=== PATIENT | female | born 1950 | race Caucasian/White ===

== ENCOUNTER 2023-11-02 12:55 | Inpatient (IN) | payer MEDICARE, OTHER, SELFPAY ==
[2023-11-02] VITALS (54 sets, daily range): BP systolic 132–193; BP diastolic 71–180; PULSE 58–71; RESP 18; TEMP 36.9; O2SAT 92–99; BMI 35.1; BMI 34.9
--- NOTE | 2023-11-02 13:12 | ED_ITS ---
HPI - General Adult General Date Seen: 11/02/23 Chief complaint: Weakness Stated complaint: shortness of breath Time Seen by Provider: 11/02/23 13:12 History of Present Illness HPI narrative: Pleasant 73-year-old female with a past medical history of hypertension, hyperlipidemia, obesity, but no history of coronary artery disease or lung disease. She is referred to the ER today from her outpatient clinic at a line in [place] for evaluation of dyspnea on exertion and abnormal EKG. She recalls that she did have some symptoms 3 or 4 years ago and had a stress test that was abnormal. She was referred to [facility] for cardiology evaluation apparently had a CT angiogram that was normal and no further workup was undertaken. She has not had any further trouble with her heart or lung since then. 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 He normally walks with a walker and wheelchair. He relies on dialysis. She and her were in [place] over the winter. For the past week or so she has been having symptoms of dyspnea with exertion and exercise. She noted that when she was trying to pack up the car to travel home to [place] for the summer she just got very winded, weak, and not of breath with any activity. No chest pain. This would happen with any activity but then would get better with rest. For instance she was winded when she was loading the car to travel home but not winded while she was driving. She was winded when she was moving her luggage in and out of the hotel room but not winded on the road. She is not having any chest pain. No back pain. No jaw pain or arm pain. She does note that she had some unexplained swelling of her left lower extremity about 3 weeks ago that is getting better. No history of DVT or PE. She went to her primary care clinic and [facility] today and was referred here to the ER. EKGs from [facility] clinic today were obtained at 11:34 a.m. Sinus rhythm with first-degree AV block. Rate: 63 OH: 210 QRS axis: Normal axis. No pathologic Q-waves. Voltage criteria for LVH ST segment/T wave: Nonspecific T-wave flattening. ST depression in lead 1, aVL which are probably discordant from her LVH. QTc: 450 1:26 p.m. Sinus bradycardia Rate: 45 OH: 1st degree AV block. OH to 26 QRS axis: Normal axis. Voltage criteria for LVH. ST segment/T wave: Nonspecific T-wave flattening. No ST segment elevation or depression QTc: 404 Related Data Home Medications Medication Instructions Recorded Confirmed Prevagen 11/02/23 coenzyme Q10 PO 11/02/23 [id number]-Hnnydcaks serr .ROUTE 11/02/23 hydrochlorothiazide 12.5 mg tablet 12.5 mg PO DAILY 11/02/23 11/02/23 krill oil PO 11/02/23 lisinopril 10 mg tablet 10 mg PO DAILY 11/02/23 11/02/23 vit A-vit M-zmktpw-vmat-copper .ROUTE 11/02/23 vit C-E-zinc wu-upxk-esd-zeax PO 11/02/23 vitamin B complex PO 11/02/23 zinc acetate PO 11/02/23 Allergies Allergy/AdvReac Type Severity Reaction Status Date / Time erythromycin base AdvReac Intermediate Anxiety Verified 11/02/23 13:18 gabapentin AdvReac Mild Drowsy Verified 11/02/23 13:18 PFSH PFSH Social History Smoking Status: Never smoker Do you use any of these nicotine containing products: None Second hand tobacco smoke exposure: No How often do you have a drink containing alcohol: never AUDIT-C Alcohol total score: 0 Non-prescribed substance use: denies use Exam Narrative: Exam Narrative: Constitutional: Appears well-developed and well-nourished. Alert. Conversant. Non toxic. HENT: Head: Atraumatic. Nose: Nose normal. Mouth/Throat: Oral mucosa is clear and moist. no trismus. Pharynx normal. Tonsils symmetric. No tonsillar enlargement, erythema, or exudate. Eyes: Conjunctivae normal. EOM normal. Pupils equal, round, and reactive to light. No scleral icterus. Neck: Normal range of motion. Neck supple. No tracheal deviation present. No JVD Cardiovascular: Normal rate, regular rhythm. No gallop. No friction rub. No murmur heard. Symmetric radial artery pulses Pulmonary/Chest: Effort normal. No stridor. No respiratory distress. No wheezes. No rales. No rhonchi . No tenderness. Abdominal: Soft. Bowel sounds normal. No distension. No mass. No tenderness. No rebound. No guarding. Musculoskeletal: RUE: Normal range of motion. No tenderness. No deformity LUE: Normal range of motion. No tenderness. No deformity RLE: Normal range of motion. No edema. No tenderness. No deformity LLE: Normal range of motion. 1+ edema. No tenderness. No deformity Neurological: Alert and oriented to person, place, and time. Normal strength. CN II-VII intact. No sensory deficit. GCS eye subscore is 4. GCS verbal subscore is 5. GCS motor subscore is 6. Normal coordination Skin: Skin is warm and dry. No rash noted. No pallor. Normal capillary refill. Psychiatric: Normal mood. Normal affect. Const: Vital Signs, click to edit/add: Vital Signs - 24 hr 11/02/23 13:06 11/02/23 13:43 11/02/23 13:45 Temperature 98.4 F Pulse Rate 61 62 Pulse Rate [Pulse Oximeter] 62 Respiratory Rate 18 Blood Pressure Blood Pressure [Ri ght Upper Arm] 132/80 Pulse Oximetry 99 98 [facility] 11/02/23 13:49 11/02/23 15:45 11/02/23 16:00 Temperature Pulse Rate 58 L 65 65 Pulse Rate [Pulse Oximeter] Respiratory Rate Blood Pressure 140/71 H Blood Pressure [Ri ght Upper Arm] Pulse Oximetry 97 93 94 Oxygen Delivery Mo thod 11/02/23 16:15 11/02/23 16:30 11/02/23 16:45 Temperature Pulse Rate 63 65 65 Pulse Rate [Pulse Oximeter] Respiratory Rate Blood Pressure Blood Pressure [Ri ght Upper Arm] Pulse Oximetry 94 93 93 Oxygen Delivery Mo thod 11/02/23 17:21 11/02/23 17:24 11/02/23 17:30 Temperature Pulse Rate 60 65 61 Pulse Rate [Pulse Oximeter] Respiratory Rate Blood Pressure 190/98 H Blood Pressure [Ri ght Upper Arm] Pulse Oximetry 97 92 92 Oxygen Delivery Mo thod 11/02/23 17:45 11/02/23 18:00 11/02/23 18:15 Temperature Pulse Rate 65 69 66 Pulse Rate [Pulse Oximeter] Respiratory Rate Blood Pressure Blood Pressure [Ri ght Upper Arm] Pulse Oximetry 96 92 96 [facility] 11/02/23 18:17 Temperature Pulse Rate 63 Pulse Rate [Pulse Oximeter] Respiratory Rate Blood Pressure 180/90 H Blood Pressure [Ri ght Upper Arm] Pulse Oximetry 94 Oxygen Delivery Me thod Course Course ED Course: Patient had difficult IV access. Unable to get an IV through standard means. Patient had placement of an ultrasound guided peripheral IV by Anesthesia. This initially seemed to be functional. However it infiltrated during CT scan She had placement of a 2nd ultrasound guided IV which again infiltrated. Discussed with radiology. With they are not able to perform a CT pulmonary angiogram through a triple-lumen central line which I could place here in the ER. Therefore we have paged the PICC statin nurse and she will place a PICC line. Vital Signs Vital signs: Initial Vital Signs Temperature 98.4 F 11/02/23 13:06 Temperature Source Temporal Artery Scan 11/02/23 13:06 Pulse Rate 62 11/02/23 13:06 Respiratory Rate 18 11/02/23 13:06 Blood Pressure 132/80 11/02/23 13:06 Blood Pressure Mean 97 11/02/23 13:06 Blood Pressure Position Sitting 11/02/23 13:06 Pulse Oximetry 99 11/02/23 13:06 Oxygen Delivery Method Room Air 11/02/23 13:06 Vital Signs Temperature 98.4 F 11/02/23 13:06 Pulse Rate 62 11/02/23 13:06 Respiratory Rate 18 11/02/23 13:06 Blood Pressure 132/80 11/02/23 13:06 Pulse Oximetry 99 11/02/23 13:06 Oxygen Delivery Method Room Air 11/02/23 13:06 Temperature 98.4 F 11/02/23 13:06 Pulse Rate 63 11/02/23 18:17 Respiratory Rate 18 11/02/23 13:06 Blood Pressure 180/90 H 11/02/23 18:17 Pulse Oximetry 94 11/02/23 18:17 Oxygen Delivery Method Room Air 11/02/23 13:06 Medications Administered Medications: Discontinued Medications Generic Name Dose Route Start Last Admin Trade Name Freq PRN Reason Stop Dose Admin Aspirin 162 mg 11/02/23 13:44 11/02/23 14:00 Aspirin 81 Mg Tab.Chew PO 11/02/23 13:45 162 mg ONCE ONE Administration Medical Decision Making MDM Narrative Medical decision making narrative: This patient presents to the ER today for evaluation of dyspnea on exertion and generalized weakness on exertion ongoing for the past week or so. Differential was broad. No evidence of palpitations, syncope or other cardiac dysrhythmia. She is not having chest pain, but with her dyspnea on exertion and clear exertional component to her symptoms We considered possible ACS,. EKG shows sinus bradycardia nonspecific changes but no ST segment elevation or depression. She is not having any chest pain today. However troponin is positive at 0.11. Repeat troponin is 0.09. History is concerning for possible unstable angina. Aspirin administered. With recent left lower extremity swelling, now improving, also consider possible PE. I feel the patient would be high risk for PE and therefore D-dimer testing would not be reliable enough to definitively rule it out. I have ordered CT PA. Kidney function is normal. Unfortunately patient has difficult IV access. She has infiltrated 2 peripheral IVs before she can succeed in CT scan. At this point we are waiting on a placement of a PICC line. Discussed with my oncoming partner, Dr. Pardo, who will follow-up on the results of the CT scan. If she does have a PE, assuming she continues to have stable vital signs (blood pres sure normal so far) she would be appropriate for admission here in [place]. However if CT PA is negative. I think she should transfer to a Cardiology capable hospital for cardiac evaluation. EKG shows no evidence for pericarditis. Clinical presentation not suggestive of myocarditis. No wheezing or bronchospasm to suggest COPD/asthma. Initial CBC showed marked leukopenia and thrombocytopenia. Suspect lab error. Repeat CBC shows normal white count, platelet count, hemoglobin. Kidney function normal. Had a long discussion with the patient. My recommendation is that she be hospitalized if she has a PE or if she has an ACS. Would recommend transfer to a Cardiology capable hospital if ACS is proven. She is obligated to be care provider for her . She has is only care provider. They have no other close family or friends in the state who could help him tonight. While she is here in the ER, there neighbor, who is a guard at the detention, has been staying with him. However her neighbor cannot stay with her overnight tonight or tomorrow. If she needs hospitalization he would probably have to be transported by EMS to a medical facility where he could be admitted for observation and respite care (even though he is not actively ill). Clinical impression 1. Dyspnea on exertion-concerning for ACS versus PE 2. Abnormal troponin Awaiting CT pulmonary angiogram Lab Data Labs: Lab Results 11/02/23 11/02/23 11/02/23 Range/Units 14:20 16:05 16:36 WBC 1.29 L* 9.49 (4.50-11.00) K/uL RBC 3.56 L 4.15 (4.00-5.20) m/uL Hgb 11.9 L 13.5 (12.0-16.0) gm/dL Hct 36.4 40.0 (33.0-51.0) % MCV 102 H 96 (80-100) fL MCH 33 33 (26-34) pg MCHC 33 34 (32-36) gm/dL RDW Coeff of John 13.1 13.1 (11.5-15.5) % Plt Count 23 L* 163 (140-440) K/uL Neut % (Auto) 61.9 68.7 (42.0-72.0) % Lymph % (Auto) 29.5 18.4 L (20-44) % Bartholomew % (Auto) 7.0 9.6 (0.0-11.0) % Eos % (Auto) 0.8 2.3 (0.0-7.0) % Baso % (Auto) 0.8 0.8 (0.0-3.0) % Neut # (Auto) 0.80 L 6.51 (1.7-7.0) K/uL Lymph # (Auto) 0.40 L 1.70 (0.90-2.90) K/uL Bartholomew # (Auto) 0.10 0.90 (0.00-0.90) K/UL Eos # (Auto) 0.00 0.22 (0.00-0.50) K/uL Baso # (Auto) 0.00 0.08 (0.00-0.30) K/uL Abs Immat Gran (auto) 0.00 0.02 (0.00-0.30) K/uL Imm/Tot Granulo (auto) 0.0 0.2 % Diff Slide Review Acceptable Review Acceptable Review (Acceptable) INR 0.95 (0.91-1.10) APTT 25 (23-33) Seconds Sodium 136 (135-149) mmol/L Potassium 4.8 (3.6-5.1) mmol/L Chloride 106 (96-114) mmol/L Carbon Dioxide 21 (20-32) mmol/L Anion Gap 9 (7-15) mEq/L BUN 25 (7-30) mg/dL Creatinine 0.9 (0.5-1.5) mg/dL Estimated Creat Clear 42.68 Estimated GFR 68 ml/min Glucose 98 (60-115) mg/dL Calcium 8.7 (8.4-10.6) mg/dL Troponin I 0.11 H* 0.09 H* (0.01-0.04) ng/mL NT-Pro-B Natriuret Pep 1440 pg/mL ECG Data Attestation: I personally reviewed and interpreted this ECG as follows: Interpretation: Sinus bradycardia with first-degree AV block Rate: 57 OH: 232 QRS axis: Normal axis. Voltage criteria for LVH. ST segment/T wave: No ST segment elevation or depression QTc: 434 Discharge Plan Discharge Clinical Impression: Acute coronary syndrome with high troponin Prescriptions: No Action lisinopril 10 mg tablet 10 mg PO DAILY hydrochlorothiazide 12.5 mg tablet 12.5 mg PO DAILY vitamin B complex [Vitamin B-50 Complex] PO krill oil PO coenzyme Q10 [Co Q-10] PO vit C-E-zinc am-hwlh-chm-zeax [ICaps AREDS2] PO vit A-vit O-bcqoue-krrn-copper [Iozy-Rnnp-Vvrv(vit A,C-biotin)] .ROUTE citaqtzaisp-Y1-Ghtgrxamx serr [Osteo Bi-Flex (5-Loxin)] .ROUTE Prevagen Rx Instructions: 1 capsule daily. Vitamin D - 50 mg Apoaequorin - 20 mg zinc acetate PO Follow Up/Referrals: Maura Fuller DO [Primary Care Provider] -
--- NOTE | 2023-11-02 13:44 | CT_ITS ---
Patient: DALLAS LUNSFORD Facility:?[facility] Patient ID:?[id number] Site Patient ID:?[id number] Site :?[id number] Study:?CT-Chest PE PROTOCOL W/ 95CC ISOVUE 370-11/02/2023 8:54:31 PM Ordering Physician:RAJENDRA Final Report: INDICATION: Dyspnea on exertion, left lower extremity swelling. COMPARISON: None. TECHNIQUE: CT angiogram of the chest, pulmonary embolus protocol. Multiplanar and MIP reformats are included. Contrast: 95 mL Isovue 370 FINDINGS: PE: Well timed bolus. Multiple bilateral pulmonary emboli. The most proximal embolus is a large pulmonary emboli at the bifurcation of the left pulmonary artery. Pulmonary emboli seen at the segmental and subsegmental levels bilaterally. The main pulmonary artery has a upper limits of normal caliber. Normal size right heart chambers. No reflux below the diaphragm. Lungs: Expiratory appearance of the lungs with low volumes. No consolidation. No large infarct. Small pulmonary nodules would likely be obscured. Pleura: No pleural effusion. No pneumothorax. Lymph nodes: No adenopathy. Mediastinum: Normal cardiac chamber size. Scattered atherosclerotic plaques. No pericardial effusion. Contrast mixing with non-opacified blood in the SVC and innominate veins. Left arm PICC distal tip superior cavoatrial junction. Bones: No fracture. No worrisome focal bone lesion. Chest wall: Normal. Upper abdomen: Contrast is already excreted into the renal collecting system from an earlier contrast administration. IMPRESSION: Multiple bilateral pulmonary emboli from the lobar through subsegmental levels. No CT findings of significant right heart strain. No pulmonary infarct seen. Discussed with the patient`s physician Dr. Pardo at 9:06 p.m. on 11/02/2023. Please note that all CT scans at this facility use dose modulation, iterative reconstruction, and/or weight-based dosing when appropriate to reduce radiation dose to as low as reasonably achievable. Dictated by Rosa Ram MD @ 11/02/2023 9:07:37 PM Signed by:?Rosa Ram MD @11/02/2023 9:07:37 PM (Electronic Signature)
[2023-11-02] MEDS: ASPIRIN 81 MG TAB.CHEW 162 MG PO (14:00)
[2023-11-02 14:30] LABS: Basophils Percent Auto 0.8 % (0.0-3.0); Eosinophils Percent Auto 0.8 % (0.0-7.0); Hematocrit 36.4 % (33.0-51.0); Hemoglobin* 11.9 gm/dL (12.0-16.0); Lymphocytes Percent Auto 29.5 % (20-44); Mean Corpuscular HGB Conc 33 gm/dL (32-36); Mean Corpuscular Hemoglobin 33 pg (26-34); Mean Corpuscular Volume 102 fL (80-100); Neutrophils Percent Auto 61.9 % (42.0-72.0); RDW Coefficient of Variation % 13.1 % (11.5-15.5); Red Blood Count 3.56 m/uL (4.00-5.20)
[2023-11-02 14:44] LABS: Chloride* 106 mmol/L (96-114); Potassium* 4.8 mmol/L (3.6-5.1); Sodium* 136 mmol/L (135-149)
[2023-11-02 14:46] LABS: Creatinine* 0.9 mg/dL (0.5-1.5); Est. Creatinine Clearance* 42.68; Estimated Glomerular Filt Rate 68 ml/min
[2023-11-02 14:47] LABS: Anion Gap 9 mEq/L (7-15); Blood Urea Nitrogen* 25 mg/dL (7-30); Calcium* 8.7 mg/dL (8.4-10.6); Carbon Dioxide* 21 mmol/L (20-32); Glucose* 98 mg/dL (60-115)
[2023-11-02 15:01] LABS: NT Pro B Type NatriureticPept* 1440 pg/mL; Troponin I* 0.11 ng/mL (0.01-0.04)
[2023-11-02 15:15] LABS: Platelet Count* 23 K/uL (140-440); White Blood Count* 1.29 K/uL (4.50-11.00)
[2023-11-02 15:16] LABS: Slide Review Reflex Yes
[2023-11-02 16:11] LABS: Basophils Absolute Auto 0.08 K/uL (0.00-0.30); Basophils Percent Auto 0.8 % (0.0-3.0); Eosinophils Absolute Auto 0.22 K/uL (0.00-0.50); Eosinophils Percent Auto 2.3 % (0.0-7.0); Hemoglobin* 13.5 gm/dL (12.0-16.0); Immature Granulocytes Abs Auto 0.02 K/uL (0.00-0.30); Immature Granulocytes Pct Auto 0.2 %; Lymphocytes Percent Auto 18.4 % (20-44); Mean Corpuscular HGB Conc 34 gm/dL (32-36); Mean Corpuscular Hemoglobin 33 pg (26-34); Mean Corpuscular Volume 96 fL (80-100); Monocytes Percent Auto 9.6 % (0.0-11.0); Neutrophils Absolute Auto 6.51 K/uL (1.7-7.0); Neutrophils Percent Auto 68.7 % (42.0-72.0); RDW Coefficient of Variation % 13.1 % (11.5-15.5); Red Blood Count 4.15 m/uL (4.00-5.20); White Blood Count* 9.49 K/uL (4.50-11.00)
[2023-11-02 16:33] LABS: Slide Review Reflex Yes
[2023-11-02 16:34] LABS: Slide Review Acceptable Review (Acceptable)
[2023-11-02 16:48] LABS: Platelet Count* 163 K/uL (140-440)
[2023-11-02 16:49] LABS: Slide Review Acceptable Review (Acceptable)
[2023-11-02 17:04] LABS: Partial Thromboplastin Time* 25 Seconds (23-33)
[2023-11-02 17:13] LABS: INR 0.95 (0.91-1.10); Prothrombin Time 13.2 Seconds
[2023-11-02 17:41] LABS: Troponin I* 0.09 ng/mL (0.01-0.04)
--- NOTE | 2023-11-02 18:54 | XR_ITS ---
Patient: DALLAS LUNSFORD Facility:?[facility] Patient ID:?[id number] Site Patient ID:?[id number] Site :?[id number] Study:?XRay-Chest 1V PORTABLE-11/02/2023 8:07:41 PM Ordering Physician:RAJENDRA Final Report: Indication: PICC line placement. Technique: Chest, 1 portable view. Comparison: 03/06/2021. Findings: Left PICC terminates in the right atrium. No pneumothorax, pleural effusion or focal airspace consolidation. Stable cardiac and mediastinal contours. Upper abdomen and osseous structures as imaged show no acute abnormality. Impression: Left PICC terminates in the right atrium. Dictated by Davi Del Rosario MD @ 11/02/2023 8:16:57 PM Signed by:?Davi Del Rosario MD @11/02/2023 8:16:57 PM (Electronic Signature)
[2023-11-02] MEDS: ENOXAPARIN 80 MG/0.8 ML INJ 90 MG SUBCUT (21:46)
--- NOTE | 2023-11-02 22:09 | ED.NURSE ---
PICC placed by PICC[facility]. PICCstat sheet documented by RN to be scanned in.
--- NOTE | 2023-11-02 22:09 | PC.NURSE ---
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 Pt will be admitted for PEs. Administration called for decision making about is vulnerable adult. He states we need to do the right thing. Dr Garvin is aware accepting of this plan. Pt is a dialysis pt and dementia. Needs other ADLS. Neighbor Silverio called at [phone]. He stated he would bring the pt in through ED entrance and go directly to [facility]. understands that leonel will be a patient and not the caregiver to her while in the hospital.
--- NOTE | 2023-11-02 22:35 | ED.NURSE ---
Pt report given to denise MEYERS. Pt to room 259
--- NOTE | 2023-11-02 23:43 | P.IMHP_ITS ---
Hospitalist- H&P: HPI History of Present Illness Time Seen by Provider: 23:44 Date Seen: 11/03/23 Chief complaint: shortness of breath Narrative: Sybil Uribe is a 73 year old female with a history of hypertension and hyperlipidemia who was having lightheadedness, shortness of breath, and upper chest pain for which she went to clinic today. She and her had just returned yesterday from a 1500 mile car trip. She saw Elizabeth Malin in the [facility] today for weakness, RODRIGUEZ and was found to have an abnormal EKG. She was sent to the ER for concern of possible ACS. Troponin was elevated at 0.11, next one was 0.9. There was an issue with IV access, so a PICC was placed. A CT scan showed bilateral PEs. She has no h/o clots. Her father had a PE after an accident that resulted in broken bones, including ribs. 4-5 weeks ago had swelling and pain in her left lower leg that would improve with elevation. It mostly went away, but she did notice that it is swollen again today, but not painful. Nurses reported that she had a prolonged QT on telemetry, so I ordered an EKG which showed a QTC of 431 milliseconds. Review of Systems Status of ROS: Reports: 10 or more systems reviewed and unremarkable except as noted in History and below Musculo: Reports: other (right knee pain due to osteoarthritis, has seen PCP) [facility] Medical History (Updated 11/03/23 @ 01:42 by Bibiana Garvin MD) COVID-19 ?U07.1 - COVID-19 (ICD-10) First degree AV block ?I44.0 - Atrioventricular block, first degree (ICD-10) H/O echocardiogram ?Z92.89 - Personal history of other medical treatment (ICD-10) Creatinine elevation Obesity ?E66.9 - Obesity, unspecified (ICD-10) Abnormal stress test ?R94.39 - Abnormal result of other cardiovascular function study (ICD-10) Cardiac murmur ?R01.1 - Cardiac murmur, unspecified (ICD-10) Hyperlipidemia ?E78.5 - Hyperlipidemia, unspecified (ICD-10) Hypertension ?I10 - Essential (primary) hypertension (ICD-10) Osteoarthritis of right knee ?M17.11 - Unilateral primary osteoarthritis, right knee (ICD-10) Surgical History (Updated 11/03/23 @ 01:22 by Bibiana Garvin MD) H/O vitrectomy ?Z98.890 - Other specified postprocedural states (ICD-10) H/O detached retina repair ?Z98.890 - Other specified postprocedural states (ICD-10) ?Z86.69 - Personal history of other diseases of the nervous system and sense organs (ICD-10) Family History (Updated 11/03/23 @ 01:25 by Bibiana Garvin MD) Father Pulmonary embolism Mother High blood pressure Other Breast cancer Social History (Updated 11/03/23 @ 01:24 by Bibiana Garvin MD) Narrative: Lives independently with in a house. [employer] in [place]. Re tired from working in the [employer]. Never smoker, smoked. Wine or mixed drink, less than one drink a month. Never any recreational drugs. FULL CODE. What is your current living situation?: I presently have a place to live Problems where you live: no known problems Problems where you live details: N/A In the past 12 months, utilities in danger of being shut off: no In past 12 months, lack of transportation kept you from medical appts, meetings, work, or getting things needed for daily living: no In the past 12 mos, have been you worried that your food would run out before you had money to buy more?: never true In the past 12 mos, the food you bought just didn't last and you didn't have money to buy more?: never true Highest level of school completed/degree received: Associate degree: occupational, technical, vocational program Smoking Status: Never smoker Do you use any of these nicotine containing products: None Second hand tobacco smoke exposure: No How often do you have a drink containing alcohol: monthly or less Alcohol type: wine and hard liquor AUDIT-C Alcohol total score: 1 Non-prescribed substance use: denies use Caffeine: Yes (2 cups coffee daily) How often does anyone, including family, friends and others, physically hurt you : never How often does anyone, including family, friends and others, insult or talk down to you: never How often does anyone, including family, friends and others, threaten you with harm: never How often does anyone, including family, friends and others, scream or curse at you: never service: No Meds Home Medications and Allergies Home Medications Medication Instructions Recorded Confirmed Type Prevagen 11/02/23 History coenzyme Q10 PO 11/02/23 History [id number]-U8-Xenfiorxx serr .ROUTE 11/02/23 History hydrochlorothiazide 12.5 mg tablet 12.5 mg PO DAILY 11/02/23 11/02/23 History krill oil PO 11/02/23 History lisinopril 10 mg tablet 10 mg PO DAILY 11/02/23 11/02/23 History vit A-vit G-qzdoni-xsvm-copper .ROUTE 11/02/23 History vit C-E-zinc xs-kfks-wmg-zeax PO 11/02/23 History vitamin B complex PO 11/02/23 History zinc acetate PO 11/02/23 History lisinopril 10 mg tablet 10 mg PO DAILY 11/03/23 11/03/23 History Allergies Allergy/AdvReac Type Severity Reaction Status Date / Time erythromycin base AdvReac Intermediate Anxiety Verified 11/02/23 20:51 gabapentin AdvReac Mild Drowsy Verified 11/02/23 20:51 Exam Narrative: Exam Narrative: General: No acute distress. Awake alert oriented x3. HEENT: Normocephalic atraumatic, pupils equally round and reactive to light and accommodation. Oropharynx clear. Mucous membranes are moist. No cervical lymphadenopathy, thyromegaly or carotid bruits. No JVD. Cardiovascular: Regular rate and rhythm. Grade 1/6 systolic murmur loudest at the right upper sternal border. No gallops or rubs. Chest: No increased work of breathing. Clear to auscultation bilaterally. No crackles or wheezes. Abdomen: Bowel sounds present. Soft, nondistended, nontender. No hepatospl enomegaly or masses. Extremities: 2 to 3+ nonpitting edema of the left leg, tenderness to palpation on the left upper calf. 2+ nonpitting edema of the right leg. No cyanosis or clubbing. Skin: No jaundice, no pallor, no rashes. Const: Vital Signs, click to edit/add: Vital Signs - 24 hr 11/02/23 13:06 11/02/23 13:43 11/02/23 13:45 Temperature 98.4 F Pulse Rate 61 62 Pulse Rate [Pulse Oximeter] 62 Pulse Rate [Right Pulse Oximeter] Respiratory Rate 18 Blood Pressure Blood Pressure [Ri ght Arm] Blood Pressure [Ri ght Upper Arm] 132/80 Pulse Oximetry 99 98 [facility] 11/02/23 13:49 11/02/23 15:45 11/02/23 16:00 Temperature Pulse Rate 58 L 65 65 Pulse Rate [Pulse Oximeter] Pulse Rate [Right Pulse Oximeter] Respiratory Rate Blood Pressure 140/71 H Blood Pressure [Ri ght Arm] Blood Pressure [Ri ght Upper Arm] Pulse Oximetry 97 93 94 [facility] 11/02/23 16:15 11/02/23 16:30 11/02/23 16:45 Temperature Pulse Rate 63 65 65 Pulse Rate [Pulse Oximeter] Pulse Rate [Right Pulse Oximeter] Respiratory Rate Blood Pressure Blood Pressure [Ri ght Arm] Blood Pressure [Ri ght Upper Arm] Pulse Oximetry 94 93 93 [facility] 11/02/23 17:21 11/02/23 17:24 11/02/23 17:30 Temperature Pulse Rate 60 65 61 Pulse Rate [Pulse Oximeter] Pulse Rate [Right Pulse Oximeter] Respiratory Rate Blood Pressure 190/98 H Blood Pressure [Ri ght Arm] Blood Pressure [Ri ght Upper Arm] Pulse Oximetry 97 92 92 Oxygen Delivery [facility] 11/02/23 17:45 11/02/23 18:00 11/02/23 18:15 Temperature Pulse Rate 65 69 66 Pulse Rate [Pulse Oximeter] Pulse Rate [Right Pulse Oximeter] Respiratory Rate Blood Pressure Blood Pressure [Ri ght Arm] Blood Pressure [Ri ght Upper Arm] Pulse Oximetry 96 92 96 Oxygen Delivery [facility] 11/02/23 18:17 11/02/23 18:18 11/02/23 18:30 Temperature Pulse Rate 63 62 71 Pulse Rate [Pulse Oximeter] Pulse Rate [Right Pulse Oximeter] Respiratory Rate Blood Pressure 180/90 H Blood Pressure [Ri ght Arm] Blood Pressure [Ri ght Upper Arm] Pulse Oximetry 94 94 94 [facility] 11/02/23 18:33 11/02/23 18:34 11/02/23 18:45 Temperature Pulse Rate 70 68 62 Pulse Rate [Pulse Oximeter] Pulse Rate [Right Pulse Oximeter] Respiratory Rate Blood Pressure 179/94 H Blood Pressure [Ri ght Arm] Blood Pressure [Ri ght Upper Arm] Pulse Oximetry 93 97 93 Oxygen Delivery [facility] 11/02/23 19:00 11/02/23 19:02 11/02/23 19:15 Temperature Pulse Rate 64 63 62 Pulse Rate [Pulse Oximeter] Pulse Rate [Right Pulse Oximeter] Respiratory Rate Blood Pressure 171/91 H Blood Pressure [Ri ght Arm] Blood Pressure [Ri ght Upper Arm] Pulse Oximetry 93 95 93 Oxygen Delivery [facility] 11/02/23 19:30 11/02/23 19:32 11/02/23 19:45 Temperature Pulse Rate 60 60 63 Pulse Rate [Pulse Oximeter] Pulse Rate [Right Pulse Oximeter] Respiratory Rate Blood Pressure 179/87 H Blood Pressure [Ri ght Arm] Blood Pressure [Ri ght Upper Arm] Pulse Oximetry 94 95 95 Oxygen Delivery [facility] 11/02/23 20:00 11/02/23 20:02 11/02/23 20:07 Temperature Pulse Rate 63 61 62 Pulse Rate [Pulse Oximeter] Pulse Rate [Right Pulse Oximeter] Respiratory Rate Blood Pressure 183/87 H 172/85 H Blood Pressure [Ri ght Arm] Blood Pressure [Ri ght Upper Arm] Pulse Oximetry 93 94 93 Oxygen Delivery [facility] 11/02/23 20:15 11/02/23 20:30 11/02/23 20:33 Temperature Pulse Rate 62 64 Pulse Rate [Pulse Oximeter] Pulse Rate [Right Pulse Oximeter] Respiratory Rate Blood Pressure 193/180 H Blood Pressure [Ri ght Arm] Blood Pressure [Ri ght Upper Arm] Pulse Oximetry 93 92 Oxygen Delivery [facility] 11/02/23 20:44 11/02/23 20:45 11/02/23 20:47 Temperature Pulse Rate 68 68 66 Pulse Rate [Pulse Oximeter] Pulse Rate [Right Pulse Oximeter] Respiratory Rate Blood Pressure 177/83 H Blood Pressure [Ri ght Arm] Blood Pressure [Ri ght Upper Arm] Pulse Oximetry 92 93 96 Oxygen Delivery [facility] 11/02/23 20:54 11/02/23 21:00 11/02/23 21:02 Temperature Pulse Rate 62 61 Pulse Rate [Pulse Oximeter] Pulse Rate [Right Pulse Oximeter] Respiratory Rate 18 Blood Pressure 154/82 H Blood Pressure [Ri ght Arm] Blood Pressure [Ri ght Upper Arm] Pulse Oximetry 95 96 Oxygen Delivery [facility] 11/02/23 21:15 11/02/23 21:30 11/02/23 21:32 Temperature Pulse Rate 65 69 69 Pulse Rate [Pulse Oximeter] Pulse Rate [Right Pulse Oximeter] Respiratory Rate Blood Pressure 166/87 H Blood Pressure [Ri ght Arm] Blood Pressure [Ri ght Upper Arm] Pulse Oximetry 96 99 97 Oxygen Delivery [facility] 11/02/23 21:45 11/02/23 22:00 11/02/23 22:02 Temperature Pulse Rate 68 67 66 Pulse Rate [Pulse Oximeter] Pulse Rate [Right Pulse Oximeter] Respiratory Rate Blood Pressure 164/75 H Blood Pressure [Ri ght Arm] Blood Pressure [Ri ght Upper Arm] Pulse Oximetry 98 96 97 Oxygen Delivery [facility] 11/02/23 22:03 11/02/23 22:15 11/02/23 22:30 Temperature Pulse Rate 62 66 68 Pulse Rate [Pulse Oximeter] Pulse Rate [Right Pulse Oximeter] Respiratory Rate Blood Pressure Blood Pressure [Ri ght Arm] Blood Pressure [Ri ght Upper Arm] Pulse Oximetry 96 94 94 Oxygen Delivery [facility] 11/02/23 22:33 11/02/23 22:52 Temperature 98.5 F Pulse Rate 69 Pulse Rate [Pulse Oximeter] Pulse Rate [Right Pulse Oximeter] 67 Respiratory Rate 18 Blood Pressure 153/86 H Blood Pressure [Ri ght Arm] 181/96 H Blood Pressure [Ri ght Upper Arm] Pulse Oximetry 95 96 Oxygen Delivery [facility] Room Air Hospitalist - H&P: Result Labs Labs: Note that 14:20 CBC was redrawn because it was thought to be erroneous. Short CBC 11/02/23 11/02/23 Range/Units 14:20 16:05 WBC 1.29 L* 9.49 (4.50-11.00) K/uL Hgb 11.9 L 13.5 (12.0-16.0) gm/dL Hct 36.4 40.0 (33.0-51.0) % Plt Count 23 L* 163 (140-440) K/uL BMP 11/02/23 14:20 Sodium 136 Potassium 4.8 Chloride 106 Carbon Dioxide 21 BUN 25 Creatinine 0.9 Glucose 98 Calcium 8.7 Cardiac Enzymes 11/02/23 11/02/23 Range/Units 14:20 16:36 Troponin I 0.11 H* 0.09 H* (0.01-0.04) ng/mL 11/02/2023 1:47 p.m. EKG: Sinus bradycardia with first-degree AV block, 57 beats per minute, nonspecific ST and T-wave abnormality, no STEMI. 11/03/2023 00:02 a.m. EKG: Sinus bradycardia with first-degree AV block, 50 beats per minute, nonspecific ST and T-wave abnormality. QTC 431 milliseconds. Study: XRay-Chest 1V PORTABLE-11/02/2023 8:07:41 PM Ordering Physician: RICH Final Report: Indication: PICC line placement. Technique: Chest, 1 portable view. Comparison: 03/06/2021. Findings: Left PICC terminates in the right atrium. No pneumothorax, pleural effusion or focal airspace consolidation. Stable cardiac and mediastinal contours. Upper abdomen and osseous structures as imaged show no acute abnormality. Impression: Left PICC terminates in the right atrium. Dictated by Davi Del Rosario MD @ 11/02/2023 8:16:57 PM (Electronic Signature) Study: CT-Chest PE PROTOCOL W/ 95CC ISOVUE 370-11/02/2023 8:54:31 PM Ordering Physician: RICH Final Report: INDICATION: Dyspnea on exertion, left lower extremity swelling. COMPARISON: None. TECHNIQUE: CT angiogram of the chest, pulmonary embolus protocol. Multiplanar and MIP reformats are included. Contrast: 95 mL Isovue 370 FINDINGS: PE: Well timed bolus. Multiple bilateral pulmonary emboli. The most proximal embolus is a large pulmonary emboli at the bifurcation of the left pulmonary artery. Pulmonary emboli seen at the segmental and subsegmental levels bilaterally. The main pulmonary artery has a upper limits of normal caliber. Normal size right heart chambers. No reflux below the diaphragm. Lungs: Expiratory appearance of the lungs with low volumes. No consolidation. No large infarct. Small pulmonary nodules would likely be obscured. Pleura: No pleural effusion. No pneumothorax. Lymph nodes: No adenopathy. Mediastinum: Normal cardiac chamber size. Scattered atherosclerotic plaques. No pericardial effusion. Contrast mixing with non-opacified blood in the SVC and innominate veins. Left arm PICC distal tip superior cavoatrial junction. Bones: No fracture. No worrisome focal bone lesion. Chest wall: Normal. Upper abdomen: Contrast is already excreted into the renal collecting system from an earlier contrast administration. IMPRESSION: Multiple bilateral pulmonary emboli from the lobar through subsegmental levels. No CT findings of significant right heart strain. No pulmonary infarct seen. Discussed with the patient`s physician Dr. Pardo at 9:06 p.m. on 11/02/2023. Please note that all CT scans at this facility use dose modulation, iterative reconstruction, and/or weight-based dosing when appropriate to reduce radiation dose to as low as reasonably achievable. Dictated by Rosa Ram MD @ 11/02/2023 9:07:37 PM (Electronic Signature) Assessment and Plan Assessment and plan (1) Pulmonary embolism, bilateral: Problem comment: - Multiple bilateral pulmonary emboli from the lobar through subsegmental levels. No CT findings of significant right heart strain. No pulmonary infarct seen. - likely precipitated by recent extended car travel. - will admit for treatment with Lovenox, continuous pulse oximetry, telemetry, repeat troponin in a.m., will need to start an oral anticoagulant as well. Obtain echocardiogram and bilateral lower extremity ultrasound for clot burden determination. Status: Acute (2) Hyperlipidemia: Problem comment: - Not currently on medication, was on simvastatin, but had a reaction, tried rosuvastatin, but legs started hurting, so she stopped statins all together in May 2023. Status: Chronic (3) Cardiac murmur: Status: Chronic (4) Hypertension: Problem comment: Tried higher lisinopril in 07/2019 - creatinine rise - continue home dosing of hydrochlorothiazide and lisinopril Status: Chronic Plan Has history of elevated creatinine, with a baseline of 1.1. Creatinine is 0.9 today. She was given IV contrast for CTA, recheck creatinine in the morning.
[2023-11-03 00:18] VITALS: PULSE 62
--- NOTE | 2023-11-03 01:32 | PC.NURSE ---
Service Support Representative noted prolonged QT interval of 0.52 per telemetry box reading. Service Support Representative then updated MD Garvin who ordered for EKG to be completed in order to verify QT interval. EKG results given to MD Garvin for review.
[2023-11-03 03:55] VITALS: BP 151/84; PULSE 69; RESP 20; TEMP 36.8; O2SAT 92
[2023-11-03 06:30] LABS: Basophils Absolute Auto 0.06 K/uL (0.00-0.30); Basophils Percent Auto 0.9 % (0.0-3.0); Eosinophils Absolute Auto 0.33 K/uL (0.00-0.50); Eosinophils Percent Auto 4.7 % (0.0-7.0); Hematocrit 36.9 % (33.0-51.0); Hemoglobin* 12.7 gm/dL (12.0-16.0); Immature Granulocytes Abs Auto 0.02 K/uL (0.00-0.30); Immature Granulocytes Pct Auto 0.3 %; Lymphocytes Absolute Auto 1.45 K/uL (0.90-2.90); Lymphocytes Percent Auto 20.8 % (20-44); Mean Corpuscular HGB Conc 34 gm/dL (32-36); Mean Corpuscular Hemoglobin 33 pg (26-34); Mean Corpuscular Volume 96 fL (80-100); Monocytes Percent Auto 11.4 % (0.0-11.0); Neutrophils Absolute Auto 4.31 K/uL (1.7-7.0); Neutrophils Percent Auto 61.9 % (42.0-72.0); Platelet Count* 197 K/uL (140-440); RDW Coefficient of Variation % 13.1 % (11.5-15.5); Red Blood Count 3.85 m/uL (4.00-5.20); White Blood Count* 6.96 K/uL (4.50-11.00)
[2023-11-03 06:34] LABS: Slide Review Reflex No
--- NOTE | 2023-11-03 06:55 | PC.NURSE ---
End of shift note:Pt noted to be alert & oriented x 4 and able to make needs known. She transfers/ambulates independently in room. Pt reported minor discomfort to bilateral hips though refused PRN Tylenol stating, ?Tylenol doesn?t work for me. It has to be Advil?. B/P noted to be elevated at 181/96 upon arrival with MD Bharathi sethi. Blood pressures have since decreased to 142/80 and 151/84. Pt has been afebrile this shift and is noted to have nonpitting edema to bilateral lower extremities. PICC in place to LUE. 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 Pt does experience shortness of breath with exertion at times and is currently on continuous pulse ox monitoring and telemetry. She has been continent of bladder throughout the shift.
[2023-11-03 07:00] VITALS: BP 140/77; PULSE 69; RESP 18; TEMP 36.7; O2SAT 95
[2023-11-03 07:20] LABS: Chloride* 106 mmol/L (96-114); Potassium* 3.3 mmol/L (3.6-5.1); Sodium* 139 mmol/L (135-149)
[2023-11-03 07:23] LABS: Anion Gap 5 mEq/L (7-15); Blood Urea Nitrogen* 22 mg/dL (7-30); Carbon Dioxide* 28 mmol/L (20-32); Creatinine* 0.9 mg/dL (0.5-1.5); Est. Creatinine Clearance* 42.68; Estimated Glomerular Filt Rate 68 ml/min; Glucose* 91 mg/dL (60-115)
[2023-11-03 07:24] LABS: Calcium* 8.6 mg/dL (8.4-10.6)
[2023-11-03 07:39] LABS: Troponin I* 0.08 ng/mL (0.01-0.04)
[2023-11-03 08:08] VITALS: PULSE 60
[2023-11-03] MEDS: hydroCHLOROthiazide 12.5 MG CAPSULE PO (08:42)
[2023-11-03] MEDS: lisinopriL 10 MG TABLET PO (08:42)
[2023-11-03] MEDS: COENZYME Q10 100 MG CAPSULE PO (08:42)
[2023-11-03] MEDS: ENOXAPARIN 100 MG/ML INJ 90 MG SUBCUT (08:43)
[2023-11-03] MEDS: SODIUM CHLORIDE 0.9 % (FLUSH) 10 ML SYRINGE 5 ML IVF (08:45)
[2023-11-03] MEDS: POTASSIUM BICARB 25 MEQ EFFERVESCENT TAB PO (09:43)
--- NOTE | 2023-11-03 10:15 | US_ITS ---
Patient: DALLAS LUNSFORD Facility:?[facility] Patient ID:?[id number] Site Patient ID:?[id number]. Site :?[id number] Study:?US-Extremity Bilateral LEV BILATERAL-11/03/2023 10:34:30 AM Ordering Physician:?BEREKET BELLAMY Final Report: INDICATION: Leg pain and swelling, bilateral PEs TECHNIQUE: Ultrasound venous duplex lower left extremity. Compression venous exam was performed using haq-scale, color Doppler, and spectral Doppler analysis. COMPARISON: None. FINDINGS: There is demonstration of thrombosis of the left lower extremity extending from the popliteal vein into the posterior tibial and peroneal veins. The common femoral and proximal superficial femoral veins are otherwise patent. IMPRESSION: Deep venous thrombosis of the popliteal vein, posterior tibial and peroneal veins. Dictated by Franky West MD @ 11/03/2023 10:48:39 AM Signed by:?Franky West MD @11/03/2023 10:48:39 AM (Electronic Signature)
[2023-11-03 11:00] VITALS: BP 140/84; PULSE 66; RESP 18; TEMP 36.6; O2SAT 97
--- NOTE | 2023-11-03 12:57 | P.DS_ITS ---
DS: Providers Provider Date Seen: 11/03/23 Date of admission: 11/02/23 23:49 Primary care physician: Maura Fuller DO Admitting Clinician: Bibiana Garvin MD Attending Physician on discharge: Adalberto Silva MD Date of Discharge: 11/03/23 DS: Diagnosis Discharge Diagnosis (1) Pulmonary embolism, bilateral: Status: Acute Problem details: - Multiple bilateral pulmonary emboli from the lobar through subsegmental levels. No CT findings of significant right heart strain. No pulmonary infarct seen. - likely precipitated by recent extended car travel. - will admit for treatment with Lovenox, continuous pulse oximetry, telemetry, repeat troponin in a.m., will need to start an oral anticoagulant as well. Obtain echocardiogram and bilateral lower extremity ultrasound for clot burden determination. My impression is that she has an unprovoked DVT from 1 month ago that has now caused a PE starting 3 days prior to admission. I recommend ongoing anticoagulation with apixaban and outpatient consult with thrombophilia/hematology to determine whether ongoing anticoagulation is warranted. DS: Summary Hospital Course Hospital Course: Sybil Uribe is a 73 year old female with a history of hypertension and hyperlipidemia who was having lightheadedness, shortness of breath, and upper chest pain for which she went to clinic today. She and her had just returned yesterday from a 1500 mile car trip, returning from spending the winter in [place]. She had acute onset of dyspnea starting Thursday evening, 3 days prior to admission after a [address] She also notes that she had pain and swelling in her left calf about 4 weeks prior to leaving [place]. There was no injury to her leg and she did not have prolonged immobilization. No previous personal history of DVT. Her father had a DVT after an accident with rib fractures and hospitalization. She had poor IV access requiring placement of a PICC line for CT imaging. Since admission she has not required oxygen. She is having no chest pain. She reports tolerating the limited activity she has done in the hospital without difficulties. Status at Discharge Overall status at discharge: patient is progressing back to baseline Time Spent with Patient Time attestation: Total time spent providing and/or coordinating discharge services: Time spent: Greater than 30 minutes Exam Narrative: Exam Narrative: She is alert and appears in no distress. Speech is normal. She appears breathing comfortably on room air. Respirations are clear to auscultation without wheezing rales or rhonchi. Cardiovascular: S1, S2, regular rate and rhythm. No murmur gallop or rub. Abdomen: Bowel sounds active. Abdomen is soft without tenderness or mass. Legs with 2+ edema but no tenderness redness or asymmetric swelling. Const: Vital Signs, click to edit/add: Vital Signs - 24 hr 11/02/23 13:06 11/02/23 13:43 11/02/23 13:45 Temperature 98.4 F Pulse Rate 61 62 Pulse Rate [Pulse Oximeter] 62 Pulse Rate [Right Pulse Oximeter] Respiratory Rate 18 Blood Pressure Blood Pressure [Ri ght Arm] Blood Pressure [Ri ght Upper Arm] 132/80 Pulse Oximetry 99 98 96 Oxygen Delivery Me thod Room Air 11/02/23 13:49 11/02/23 15:45 11/02/23 16:00 Temperature Pulse Rate 58 L 65 65 Pulse Rate [Pulse Oximeter] Pulse Rate [Right Pulse Oximeter] Respiratory Rate Blood Pressure 140/71 H Blood Pressure [Ri ght Arm] Blood Pressure [Ri ght Upper Arm] Pulse Oximetry 97 93 94 Oxygen Delivery Me thod 11/02/23 16:15 11/02/23 16:30 11/02/23 16:45 Temperature Pulse Rate 63 65 65 Pulse Rate [Pulse Oximeter] Pulse Rate [Right Pulse Oximeter] Respiratory Rate Blood Pressure Blood Pressure [Ri ght Arm] Blood Pressure [Ri ght Upper Arm] Pulse Oximetry 94 93 93 Oxygen Delivery Me thod 11/02/23 17:21 11/02/23 17:24 11/02/23 17:30 Temperature Pulse Rate 60 65 61 Pulse Rate [Pulse Oximeter] Pulse Rate [Right Pulse Oximeter] Respiratory Rate Blood Pressure 190/98 H Blood Pressure [Ri ght Arm] Blood Pressure [Ri ght Upper Arm] Pulse Oximetry 97 92 92 Oxygen Delivery Me thod 11/02/23 17:45 11/02/23 18:00 11/02/23 18:15 Temperature Pulse Rate 65 69 66 Pulse Rate [Pulse Oximeter] Pulse Rate [Right Pulse Oximeter] Respiratory Rate Blood Pressure Blood Pressure [Ri ght Arm] Blood Pressure [Ri ght Upper Arm] Pulse Oximetry 96 92 96 Oxygen Delivery Me thod 11/02/23 18:17 11/02/23 18:18 11/02/23 18:30 Temperature Pulse Rate 63 62 71 Pulse Rate [Pulse Oximeter] Pulse Rate [Right Pulse Oximeter] Respiratory Rate Blood Pressure 180/90 H Blood Pressure [Ri ght Arm] Blood Pressure [Ri ght Upper Arm] Pulse Oximetry 94 94 94 Oxygen Delivery Me thod 11/02/23 18:33 11/02/23 18:34 11/02/23 18:45 Temperature Pulse Rate 70 68 62 Pulse Rate [Pulse Oximeter] Pulse Rate [Right Pulse Oximeter] Respiratory Rate Blood Pressure 179/94 H Blood Pressure [Ri ght Arm] Blood Pressure [Ri ght Upper Arm] Pulse Oximetry 93 97 93 Oxygen Delivery Me thod 11/02/23 19:00 11/02/23 19:02 11/02/23 19:15 Temperature Pulse Rate 64 63 62 Pulse Rate [Pulse Oximeter] Pulse Rate [Right Pulse Oximeter] Respiratory Rate Blood Pressure 171/91 H Blood Pressure [Ri ght Arm] Blood Pressure [Ri ght Upper Arm] Pulse Oximetry 93 95 93 Oxygen Delivery Me thod 11/02/23 19:30 11/02/23 19:32 11/02/23 19:45 Temperature Pulse Rate 60 60 63 Pulse Rate [Pulse Oximeter] Pulse Rate [Right Pulse Oximeter] Respiratory Rate Blood Pressure 179/87 H Blood Pressure [Ri ght Arm] Blood Pressure [Ri ght Upper Arm] Pulse Oximetry 94 95 95 Oxygen Delivery Me thod 11/02/23 20:00 11/02/23 20:02 11/02/23 20:07 Temperature Pulse Rate 63 61 62 Pulse Rate [Pulse Oximeter] Pulse Rate [Right Pulse Oximeter] Respiratory Rate Blood Pressure 183/87 H 172/85 H Blood Pressure [Ri ght Arm] Blood Pressure [Ri ght Upper Arm] Pulse Oximetry 93 94 93 Oxygen Delivery Me thod 11/02/23 20:15 11/02/23 20:30 11/02/23 20:33 Temperature Pulse Rate 62 64 Pulse Rate [Pulse Oximeter] Pulse Rate [Right Pulse Oximeter] Respiratory Rate Blood Pressure 193/180 H Blood Pressure [Ri ght Arm] Blood Pressure [Ri ght Upper Arm] Pulse Oximetry 93 92 Oxygen Delivery Me thod 11/02/23 20:44 11/02/23 20:45 11/02/23 20:47 Temperature Pulse Rate 68 68 66 Pulse Rate [Pulse Oximeter] Pulse Rate [Right Pulse Oximeter] Respiratory Rate Blood Pressure 177/83 H Blood Pressure [Ri ght Arm] Blood Pressure [Ri ght Upper Arm] Pulse Oximetry 92 93 96 Oxygen Delivery Me thod 11/02/23 20:54 11/02/23 21:00 11/02/23 21:02 Temperature Pulse Rate 62 61 Pulse Rate [Pulse Oximeter] Pulse Rate [Right Pulse Oximeter] Respiratory Rate 18 Blood Pressure 154/82 H Blood Pressure [Ri ght Arm] Blood Pressure [Ri ght Upper Arm] Pulse Oximetry 95 96 Oxygen Delivery Me thod 11/02/23 21:15 11/02/23 21:30 11/02/23 21:32 Temperature Pulse Rate 65 69 69 Pulse Rate [Pulse Oximeter] Pulse Rate [Right Pulse Oximeter] Respiratory Rate Blood Pressure 166/87 H Blood Pressure [Ri ght Arm] Blood Pressure [Ri ght Upper Arm] Pulse Oximetry 96 99 97 Oxygen Delivery Me thod 11/02/23 21:45 11/02/23 22:00 11/02/23 22:02 Temperature Pulse Rate 68 67 66 Pulse Rate [Pulse Oximeter] Pulse Rate [Right Pulse Oximeter] Respiratory Rate Blood Pressure 164/75 H Blood Pressure [Ri ght Arm] Blood Pressure [Ri ght Upper Arm] Pulse Oximetry 98 96 97 Oxygen Delivery Me thod 11/02/23 22:03 11/02/23 22:15 11/02/23 22:30 Temperature Pulse Rate 62 66 68 Pulse Rate [Pulse Oximeter] Pulse Rate [Right Pulse Oximeter] Respiratory Rate Blood Pressure Blood Pressure [Ri ght Arm] Blood Pressure [Ri ght Upper Arm] Pulse Oximetry 96 94 94 Oxygen Delivery Me thod 11/02/23 22:33 11/02/23 22:52 11/02/23 23:00 Temperature 98.5 F Pulse Rate 69 Pulse Rate [Pulse Oximeter] Pulse Rate [Right Pulse Oximeter] 67 Respiratory Rate 18 18 Blood Pressure 153/86 H Blood Pressure [Ri ght Arm] 181/96 H Blood Pressure [Ri ght Upper Arm] Pulse Oximetry 95 96 Oxygen Delivery Me thod Room Air 11/02/23 23:38 11/02/23 23:45 11/02/23 23:55 Temperature Pulse Rate Pulse Rate [Pulse Oximeter] Pulse Rate [Right Pulse Oximeter] Respiratory Rate 18 Blood Pressure Blood Pressure [Ri ght Arm] 142/80 H Blood Pressure [Ri ght Upper Arm] Pulse Oximetry 96 96 Oxygen Delivery Me thod Room Air 11/03/23 00:18 11/03/23 03:55 11/03/23 07:00 Temperature 98.3 F 98.1 F Pulse Rate 62 Pulse Rate [Pulse Oximeter] Pulse Rate [Right Pulse Oximeter] 69 69 Respiratory Rate 20 18 Blood Pressure Blood Pressure [Ri ght Arm] 151/84 H 140/77 H Blood Pressure [Ri ght Upper Arm] Pulse Oximetry 92 95 Oxygen Delivery Me thod Room Air Room Air 11/03/23 07:00 11/03/23 07:00 11/03/23 08:08 Temperature Pulse Rate 60 Pulse Rate [Pulse Oximeter] Pulse Rate [Right Pulse Oximeter] 69 Respiratory Rate 18 18 Blood Pressure Blood Pressure [Ri ght Arm] Blood Pressure [Ri ght Upper Arm] Pulse Oximetry 95 Oxygen Delivery Me thod Room Air 11/03/23 11:00 Temperature 97.8 F Pulse Rate Pulse Rate [Pulse Oximeter] Pulse Rate [Right Pulse Oximeter] 66 Respiratory Rate 18 Blood Pressure Blood Pressure [Ri ght Arm] 140/84 H Blood Pressure [Ri ght Upper Arm] Pulse Oximetry 97 Oxygen Delivery Me thod Room Air Documenting provider has reviewed patient's vital signs: yes DS: Data Data Completed and Pending Labs on day of discharge: Labs from last 24 hours 11/03/23 11/02/23 11/02/23 06:20 16:36 16:05 WBC 6.96 9.49 RBC 3.85 L 4.15 Hgb 12.7 13.5 Hct 36.9 40.0 MCV 96 96 MCH 33 33 MCHC 34 34 RDW Coeff of John 13.1 13.1 Plt Count 197 163 Neut % (Auto) 61.9 68.7 Lymph % (Auto) 20.8 18.4 L [place] % (Auto) 11.4 H 9.6 Eos % (Auto) 4.7 2.3 Baso % (Auto) 0.9 0.8 Neut # (Auto) 4.31 6.51 Lymph # (Auto) 1.45 1.70 [place] # (Auto) 0.80 0.90 Eos # (Auto) 0.33 0.22 Baso # (Auto) 0.06 0.08 Abs Immat Gran (auto) 0.02 0.02 Imm/Tot Granulo (auto) 0.3 0.2 Diff Slide Review Acceptable Review INR 0.95 APTT 25 Sodium 139 Potassium 3.3 L Chloride 106 Carbon Dioxide 28 Anion Gap 5 L BUN 22 Creatinine 0.9 Estimated Creat Clear 42.68 Estimated GFR 68 Glucose 91 Calcium 8.6 Troponin I 0.08 H* 0.09 H* NT-Pro-B Natriuret Pep 11/02/23 14:20 WBC 1.29 L* RBC 3.56 L Hgb 11.9 L Hct 36.4 MCV 102 H MCH 33 MCHC 33 RDW Coeff of John 13.1 Plt Count 23 L* Neut % (Auto) 61.9 Lymph % (Auto) 29.5 [place] % (Auto) 7.0 Eos % (Auto) 0.8 Baso % (Auto) 0.8 Neut # (Auto) 0.80 L Lymph # (Auto) 0.40 L [place] # (Auto) 0.10 Eos # (Auto) 0.00 Baso # (Auto) 0.00 Abs Immat Gran (auto) 0.00 Imm/Tot Granulo (auto) 0.0 Diff Slide Review Acceptable Review INR APTT Sodium 136 Potassium 4.8 Chloride 106 Carbon Dioxide 21 Anion Gap 9 BUN 25 Creatinine 0.9 Estimated Creat Clear 42.68 Estimated GFR 68 Glucose 98 Calcium 8.7 Troponin I 0.11 H* NT-Pro-B Natriuret Pep [address] scan - chest: Radiologist's impression: INDICATION: Dyspnea on exertion, left lower extremity swelling. COMPARISON: None. TECHNIQUE: CT angiogram of the chest, pulmonary embolus protocol. Multiplanar and MIP reformats are included. Contrast: 95 mL Isovue 370 FINDINGS: PE: Well timed bolus. Multiple bilateral pulmonary emboli. The most proximal embolus is a large pulmonary emboli at the bifurcation of the left pulmonary artery. Pulmonary emboli seen at the segmental and subsegmental levels bilaterally. The main pulmonary artery has a upper limits of normal caliber. Normal size right heart chambers. No reflux below the diaphragm. Lungs: Expiratory appearance of the lungs with low volumes. No consolidation. No large infarct. Small pulmonary nodules would likely be obscured. Pleura: No pleural effusion. No pneumothorax. Lymph nodes: No adenopathy. Mediastinum: Normal cardiac chamber size. Scattered atherosclerotic plaques. No pericardial effusion. Contrast mixing with non-opacified blood in the SVC and innominate veins. Left arm PICC distal tip superior cavoatrial junction. Bones: No fracture. No worrisome focal bone lesion. Chest wall: Normal. Upper abdomen: Contrast is already excreted into the renal collecting system from an earlier contrast administration. IMPRESSION: Multiple bilateral pulmonary emboli from the lobar through subsegmental levels. No CT findings of significant right heart strain. No pulmonary infarct seen. Discussed with the patient`s physician Dr. Pardo at 9:06 p.m. on 11/02/2023. Discharge Plan Discharge Disposition: Home, Self-Care Date of Admission: 11/02/23 23:49 Attending Provider on Discharge: Maninder Silva Primary Care Provider: Maura Fuller Condition: Improved Anticipated Discharge Date/Time: 11/03/23 14:14 Discharge Medications: New Eliquis 5 mg tablet 10 mg PO BID Qty: 74 2RF Rx Instructions: 2 tablets, 10 mg, twice daily for 1 week then 1 tablet twice daily for at least 3 months. Continued hydrochlorothiazide 12.5 mg tablet 12.5 mg PO DAILY Prevagen 1 cap PO DAILY Rx Instructions: 1 capsule daily. Vitamin D - 50 mg Apoaequorin - 20 mg lisinopril 10 mg tablet 10 mg PO DAILY coenzyme Q10 [Co Q-10] 10 mg capsule 10 mg PO DAILY krill oil 500 mg capsule 500 mg PO DAILY biotin 1 mg capsule 1 mg PO DAILY vitamin B complex [B-Complex] Tablet 1 tab PO DAILY zinc gluconate 50 mg tablet 50 mg PO DAILY PRN calcium carbonate [Calcium 600] 600 mg calcium (1,500 mg) tablet 600 mg PO DAILY coQ10 (ubiquinol) [Qunol Kal CoQ10] 100 mg capsule 100 mg PO DAILY Discharge Orders: Discharge Order (Routine); Ordered 11/03/23 Ordered By: Maninder Silva Activity Level: Activity as Tolerated Discharge Diet: Regular Follow Up Appointments: Maura Fuller DO [Primary Care Provider] - (follow up in one week.) Forms: [employer] Info Instructions
[2023-11-03 15:00] VITALS: BP 150/81; PULSE 60; RESP 18; TEMP 37; O2SAT 98
--- NOTE | 2023-11-03 15:10 | PC.SOCIAL ---
Addendum entered by GREG Vasquez 11/03/23 15:25: Discharge planning: Pt has no concerns for returning home and shared that she has respite services in place to help her caregive for her so that she can rest. Social work to follow-up as needed. Original Note: Discharge planning: circulation worker met with pt to discuss how she will get home. Pt said that she has her car here at the hospital, as she drove herself to the ER yesterday. Pt plan to drive herself home along with her . Social work to follow-up as needed.
--- NOTE | 2023-11-03 18:25 | PC.NURSE ---
Discharge: Patient pleasant and cooperative. Up independently in room. Ambulated in dyer x3 with staff, o2 sat >90% most of walk, dropped to 88% briefly but recovered, denied SOB during exertion. Vitals stable. Denied pain or nausea. Tolerating regular diet well. PICC removed via sterile procedure, xeroform gauze, gauze sponge and tegaderm used to cover area. PICC measured to 45 when removed. Patient instructed to keep dressing on for at least 24 hours and to avoid shower during that time. Pressure applied for 30 seconds then patient lied flat for 30min. Patient informed of S/S of infection at PICC site. Patient discharged @ 1817 via wheelchair, discharged to home.
== END 2023-11-03 18:17 | disposition home or self-care (01) | DRG 176 ==
LOC: ED 22:23 → MEDSURG 22:35
PROVIDERS: Admitting Provider Family Medicine; Emergency Provider Emergency Medicine; PCP Family Medicine; Visit Provider Family Medicine
DX: I26.94 Multiple subsegmental thrombotic pulmonary emboli without acute cor pulmonale (principal); I82.432 Acute embolism and thrombosis of left popliteal vein; I82.442 Acute embolism and thrombosis of left tibial vein; I82.452 Acute embolism and thrombosis of left peroneal vein; E66.9 Obesity, unspecified; I44.0 Atrioventricular block, first degree; Z68.34 Body mass index [BMI] 34.0-34.9, adult; R94.39 Abnormal result of other cardiovascular function study; I10 Essential (primary) hypertension; E78.5 Hyperlipidemia, unspecified
CPT/HCPCS: 36415; 36589; 71275; 80048; 83880; 84484; 85025; 85610; 85730; 93005; 93306; 93970; 99285; A9270; C1751; J1650; Q9967